=== PATIENT | male | born 1980 | race Caucasian/White ===

== ENCOUNTER 2017-07-06 15:56 | Emergency (ER) | payer SELFPAY ==
[~2017-07-06] VITALS: Ht 175.3 cm; Wt 70.4 kg
[2017-07-06 16:17] VITALS: BP 128/88; TEMP 36.9; Ht 175.3 cm; Wt 70.4 kg
--- NOTE | 2017-07-06 16:44 | EMERGENCY ROOM VISIT NOTE ---
History Report prepared by Anthony: Mirtha Figueroa Under the Supervision of: Dr. Johnny Mcdowell D.O. 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 He states he was then released without a prescription for antibiotics and his wounds have worsened. He notes the only thing that has changed is that he used his sister's deodorant. His wounds are now seeping and draining. He denies a history of MRSA. 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 A total of 10 systems reviewed and were otherwise negative. Social History Smoking Status: Current Some Day Smoker Physical Exam Vital Signs Date Time Temp Pulse Resp B/P (MAP) Pulse Ox O2 Delivery O2 Flow Rate FiO2 07/06/18 16:17 36.9 88 18 128/88 97 Room Air Physical Exam CONSTITUTIONAL/VITAL SIGNS: Reviewed / noted above. GENERAL: Non-toxic in appearance. INTEGUMENTARY: Warm, dry, and [place]. Draining abscess under right axilla. Several mild erythematous nodules under left axilla. Erythematous nodules. Small erythematous quarter sized region on the right hip. Draining small pilonidal cyst. HEAD: Normocephalic. EYES: without scleral icterus or trauma. ENT/OROPHARYNX: clear and moist. LYMPHADENOPATHY/NECK: Is supple without lymphadenopathy or meningismus. RESPIRATORY: Lungs clear and equal. CARDIOVASCULAR: Regular rate and rhythm. GI/ABDOMEN: Soft and nontender. No organomegaly or pulsatile mass. No rebound or guarding. Normal bowel sounds. EXTREMITIES: Warm and well perfused. BACK: No CVA tenderness. NEUROLOGICAL: Intact without focal deficits. PSYCHIATRIC: normal affect. MUSCULOSKELETAL: Normally developed with good muscle tone. Medical Decision & Procedures ED Course 1628: Previous medical records were reviewed. The patient was evaluated in room B8. A complete history and physical examination was performed. Medical Decision Differential diagnosis: Etiologies such as cellulitis, abscess, MRSA infection, DVT, necrotizing fasciitis, dermatitis, drug eruption, as well as others were entertained.. This is a 37-year-old male who presents to the ED with a chief complaint of infection. The patient states that he developed infection about 10 days ago after. He reports the infection under both axilla as well as in the right lateral hip and in the upper buttock area. The patient has on exam a drained abscess under the right axilla. There is currently no drainage. He has several small erythematous nodules on the left axilla. He also has an erythematous area about the size of a quarter in the right lateral hip. There is also noted to be a small pilonidal cyst that appears to have drained recently and is mildly erythematous. After evaluating the patient, he was started on Keflex and Bactrim and felt to be stable for discharge. Medication Reconcilliation Current Medication List: was personally reviewed by me Blood Pressure Screening Patient's blood pressure: Normal blood pressure Blood pressure disposition: Did not require urgent referral Impression Primary Impression: Cellulitis Additional Impressions: Hydradenitis Pilonidal cyst Scribe Attestation The scribe's documentation has been prepared under my direction and personally reviewed by me in its entirety. I confirm that the note above accurately reflects all work, treatment, procedures, and medical decision making performed by me. Departure Information Referrals No Doctor, Assigned (PCP) Patient Instructions Cellulitis - [facility], [facility] Additional Instructions Keflex and Bactrim as prescribed. Follow-up with your doctor for further care and evaluation in 1-2 weeks. Return to the emergency department for worsening or new symptoms or any concerns. You have been examined and treated today on an emergency basis only. This is not a substitute for, or an effort to provide, complete comprehensive medical care. It is impossible to recognize and treat all injuries or illnesses in a single emergency department visit. It is therefore important that you follow up closely with your doctor. Call as soon as possible for an appointment. Problem Qualifiers
[2017-07-06] MEDS ORDERED: SULFAMETHOXAZOLE/TRIMETHOPRIM DS 800/160MG TAB PO ONE (16:45)
[2017-07-06] MEDS ORDERED: CEPHALEXIN MONOHYDRATE 250 MG CAP PO ONE (16:45)
[2017-07-06] MEDS ORDERED: CEPH500C PO (17:27)
[2017-07-06] MEDS ORDERED: SULF800T23 PO (17:27)
[2017-07-06 17:41] VITALS: PULSE 85; O2SAT 99
== END 2017-07-06 17:42 | disposition home or self-care (01) ==
LOC: C.EDB 15:59
DX: L03.111 Cellulitis of right axilla (principal); L03.112 Cellulitis of left axilla; L73.2 Hidradenitis suppurativa; L05.91 Pilonidal cyst without abscess; F17.210 Nicotine dependence, cigarettes, uncomplicated